=== PATIENT | female | born 1985 | race Two or more races ===

== ENCOUNTER 2018-12-03 12:53 | Outpatient (CLI) | payer OTHER | END 2018-12-03 12:56 | disposition home or self-care (01) | LOC: SONOGRAMA 12:53 | DX: N60.12 Diffuse cystic mastopathy of left breast (principal) ==

== ENCOUNTER 2022-01-07 10:20 | Emergency (ER) | payer OTHER ==
[~2022-01-07] VITALS: Ht 157.5 cm; Wt 54.4 kg
[2022-01-07] MEDS ORDERED: METHYLPREDNISOLO8 MG PO (10:29)
== END 2022-01-07 12:06 | disposition home or self-care (01) ==
LOC: ER 10:20
DX: A60.00 Herpesviral infection of urogenital system, unspecified (principal)

== ENCOUNTER → 2022-03-08 | Emergency (ER) | payer OTHER ==
[~2022-03-08] VITALS: Ht 157.5 cm; Wt 52.2 kg
[~2022-03-08] MED LIST: METHYLPREDNISOLO8 MG PO
== END | disposition designated cancer center or children's hospital (05) ==
LOC: ER 18:41
DX: K36 Other appendicitis (principal); R10.31 Right lower quadrant pain; R11.0 Nausea; N20.0 Calculus of kidney; Z20.822 Contact with and (suspected) exposure to COVID-19
CPT/HCPCS: 36415; 74177; Q9965

== ENCOUNTER 2022-06-08 16:20 | Emergency (ER) | payer OTHER ==
[~2022-06-08] VITALS: Ht 158.8 cm; Wt 54.4 kg
== END 2022-06-09 00:21 | disposition home or self-care (01) ==
LOC: ER 16:20
DX: N93.9 Abnormal uterine and vaginal bleeding, unspecified (principal)

== ENCOUNTER 2023-04-08 16:22 | Emergency (ER) | payer OTHER ==
[~2023-04-08] VITALS: Ht 157.5 cm; Wt 56.7 kg
[2023-04-08] MEDS ORDERED: ZYRTEC10 M3 PO (17:22)
== END 2023-04-08 21:05 | disposition home or self-care (01) ==
LOC: ER 16:22
DX: N39.0 Urinary tract infection, site not specified (principal)